=== PATIENT | female | born 1995 | race African-American/Black ===

== ENCOUNTER 2024-06-20 10:43 | Emergency (ER) | payer MEDICAID, SELFPAY ==
--- NOTE | ~2024-06-20 | CT_ITS ---
EXAMINATION: CT abdomen pelvis w con DATE: 06/20/2024 13:02 INDICATION: Constipation with diffuse abdominal pain. TECHNIQUE: Computed tomography (CT) of the abdomen and pelvis was performed with 100 mL Omnipaque-350 intravenous contrast. Automated exposure control and iterative reconstruction technique were employe d. The dose-length product was 254.06 mGy-cm. COMPARISON: None FINDINGS: Lung bases are clear. Heart size normal. No pericardial or pleural effusion. Liver, gallbladder, sple en, pancreas, bilateral adrenal glands and kidneys are normal. Normal appendix and small bowel with n o obstruction. Small amount of stool in the ascending colon. The remainder of the colon is relatively decompressed. Bladder, anteverted uterus and bilateral adnexa are unremarkable. No free intraperiton eal gas or fluid. No pathologically enlarged abdominal or pelvic lymphadenopathy. Bones are unremarka ble. IMPRESSION: 1. No acute intra-abdominal/pelvic process with only small amount of stool in the proximal colon. Reviewed, dictated and finalized at location A. TRAINER IMPRESSION: 1. No acute intra-abdominal/pelvic process with only small amount of stool in t he proximal colon.
[2024-06-20 10:46] VITALS: BP 114/64; PULSE 88; RESP 16; TEMP 36.9; O2SAT 100
--- NOTE | 2024-06-20 11:09 | ED_ITS ---
HPI - General Adult General Chief complaint: Unspecified Stated complaint: constipatio, rectal pain Time Seen by Provider: 06/20/24 10:51 History of Present Illness HPI narrative: 28-year-old female presents emergency department for rectal pain, abdominal pain constipation. Patient states she has not had a full bowel movement a week. States she has been passing soft stools and hard stools. States yesterday she passed a very hard stool then shortly after began having pain in her rectum, abdomen and nausea and vomiting. States today she began having bright red blood when she attempted to passed stool with sharp shooting pains in her rectum. She denies fever, prior abdominal surgeries, dysuria hematuria. States she took milk of magnesia last night without improvement. Related Data Allergies Allergy/AdvReac Type Severity Reaction Status Date / Time Sulfa (Sulfonamide Allergy Unknown Verified 11/05/16 12:08 Antibiotics) Review of Systems Review of Systems: All systems reviewed & are unremarkable except as noted in HPI and below Exam Narrative: GENERAL: Well-appearing, well-nourished, and in no acute distress. HEAD: Normocephalic, atraumatic. EYES: EOMI. ENT: Nares clear, no rhinorrhea or epistaxis. Mucous membranes moist. NECK: Supple. CHEST: Clear to auscultation. No respiratory distress. HEART: Regular rate and rhythm. No murmur heard. Normal peripheral pulses. ABDOMEN: Hyperactive bowel sounds. Abdomen soft with tenderness in the left lower quadrant, suprapubic region periumbilical region. No rebound or rigidity. No CVA tenderness. Rectal exam chaperoned by tech Crystal: small posterior anal fissure, tender to palpation, no active bleeding. No hematochezia or melena appreciated. No stool ball palpated. Hemoccult is positive. EXTREMITIES: Normal range of motion. No edema. SKIN: Warm, dry, no rash. NEURO: No focal deficits. Alert and oriented x3 Course Vital Signs Vital signs: Vital Signs Temperature 98.4 F 06/20/24 10:46 Pulse Rate 88 06/20/24 10:46 Respiratory Rate 16 06/20/24 10:46 Blood Pressure 114/64 06/20/24 10:46 Pulse Oximetry 100 06/20/24 10:46 Oxygen Delivery Room Air 06/20/24 10:46 Temperature 98.4 F 06/20/24 10:46 Pulse Rate 64 06/20/24 12:35 Respiratory Rate 16 06/20/24 12:35 Blood Pressure 123/70 06/20/24 12:35 Pulse Oximetry 100 06/20/24 12:35 Oxygen Delivery Room Air 06/20/24 10:46 Medical Decision Making MDM Narrative Medical decision making narrative: 28-year-old female presents emergency department for rectal pain, abdominal pain, constipation for few days. began having bright red blood in her rectum today. Vitals are stable. Exam is significant for the above. Lab work shows no leukocytosis or anemia. Chemistries are unremarkable. UA without UTI. is negative. Lipase is normal. CT abdomen pelvis shows no acute intra-abdominal or pelvic process with only small amount of stool in the proximal colon. Workup discussed with the patient. She reports improvement after IV fluids, Zofran and Toradol. Will treat anal fissure with topical nitroglycerin ointment. will provide stool softeners and MiraLax to assist with constipation a nd pain of anal fissure. Encouraged Sitz baths, increase fiber diet and close follow-up with PCP and GI, referrals provided. Discussed strict ED return precautions. She is agreeable to plan verbalized understanding. Discharged in stable condition. Vital Signs Vital Signs: Vital Signs Temperature 98.4 F 06/20/24 10:46 Pulse Rate 88 06/20/24 10:46 Respiratory Rate 16 06/20/24 10:46 Blood Pressure 114/64 06/20/24 10:46 Pulse Oximetry 100 06/20/24 10:46 Oxygen Delivery Room Air 06/20/24 10:46 Temperature 98.4 F 06/20/24 10:46 Pulse Rate 64 06/20/24 12:35 Respiratory Rate 16 06/20/24 12:35 Blood Pressure 123/70 06/20/24 12:35 Pulse Oximetry 100 06/20/24 12:35 Oxygen Delivery Room Air 06/20/24 10:46 Lab Data 06/20/24 11:19 06/20/24 11:19 Labs: Lab Results 06/20/24 06/20/24 06/20/24 Range/Units 11:19 12:44 13:11 WBC 7.9 (4.5-10.0) K/mm3 RBC 4.15 L (4.2-5.4) M/mm3 Hgb 12.6 (12.0-15.0) g/dL Hct 37.4 (37.0-47.0) % MCV 90.1 (80-100) fl MCH 30.4 (26-34) pg MCHC 33.7 (32-36) g/dl RDW 12.8 (11.5-14.5) % Plt Count 248 (150-375) k/mm3 MPV 11.0 H (7.4-10.4) fl Immature Gran % (Auto) 0.3 (0-0.5) % Neut % (Auto) 63.1 (45.5-73.1) % Lymph % (Auto) 29.4 (18.3-44.2) % [place] % (Auto) 5.7 (2.6-8.5) % Eos % (Auto) 1.1 (0-4.4) % Baso % (Auto) 0.4 (0.2-1.2) % Lymph # (Auto) 2.32 (0.9-3.2) K/mm3 [place] # (Auto) 0.5 (0.1-0.6) K/mm3 Eos # (Auto) 0.1 (0-0.3) K/mm3 Baso # (Auto) 0.0 (0.0-0.1) K/mm3 Abs Immat Gran (auto) 0.02 (0.00-0.031) K/mm3 Absolute Neuts (auto) 5.0 (1.3-6.7) K/mm3 Absolute Nucleated RBC 0.000 (0.0-0.012) K/mm3 Nucleated RBC % 0.0 (0.0-0.2) % Sodium 139 (137-145) mmol/L Potassium 3.6 (3.4-5.0) mmol/L Chloride 106 (98-107) mmol/L Carbon Dioxide 27 (22-30) mmol/L Anion Gap 6 (4-12) mmol/L BUN 11 (7-17) mg/dL Creatinine 0.90 (0.7-1.0) mg/dL Estim Creat Clear Calc 65 ml/min Estimated GFR > 60 (59 - ) Glucose 123 H (65-110) mg/dL Calcium 9.1 (8.4-10.2) mg/dL Total Bilirubin 0.7 (0.2-1.3) mg/dL AST 21 (14-36) U/L ALT 15 (6-35) U/L Alkaline Phosphatase 71 (38-126) U/L Total Protein 8.0 (6.3-8.2) g/dL Albumin 4.4 (3.5-5.1) g/dL Lipase 63 (23-300) U/L Urine Color Yellow (Yellow) Urine Appearance Clear (Clear) Urine pH 6.5 (5.0-9.0) Ur Specific [place] > 1.045 H (1.001-1.035) Urine Protein Trace (Negative) mg/dL Urine Glucose (UA) Negative (Negative) mg/dL Urine Ketones Negative (Negative) mg/dL Ur Blood (Man) Negative (Negative) Urine Nitrate Negative (Negative) Urine Bilirubin Negative (Negative) Urine Urobilinogen 0.2 (<2.0) mg/dL Leukocyte Esterase Rfl Negative (Negative) ELEONORA/UL Urine RBC 0-2 (0-2) /hpf Urine WBC 0-5 (0-3) /hpf Ur Squamous Epith Cells None seen (Few) /hpf Urine Bacteria None seen /hpf Urine Casts 0-2 POC Urine HCG, Qual Negative (Negative) Discharge Plan Discharge Clinical Impression: Anal fissure Constipation Qualifiers: Constipation type: unspecified constipation type Qualified Code(s): K59.00 - Constipation, unspecified Patient Disposition: Home, Self-Care Condition: Stable Instructions: Antibiotic Form, Constipation (DC), Anal Fissure (ED), Abdominal Pain (ED), Sitz Bath (DC) Additional Instructions: Your evaluated in the emergency department for pain to her rectum and abdominal pain. Your found have an anal fissure on exam. The rest of your workup is reassuring but does show some constipation in the CT scan. Please use the creams as directed and eat a high-fiber diet. Please do Sitz baths several times a day as discussed. He is stool softeners and MiraLax as directed. Follow-up with the GI physician and PCP. Return to the emergency department if you develop fever, worsening or changing pain, or other concerning symptoms. Prescriptions: New nitroglycerin 0.4 % (w/w) ointment 1 inch RECTAL BID 7 Days Qty: 30 0RF docusate sodium 100 mg capsule 100 mg PO BID Qty: 20 0RF ondansetron 4 mg tablet,disintegrating 4 mg PO Q8H Qty: 14 0RF polyethylene glycol 3350 [ClearLax] 17 gram/dose powder 17 g PO DAILY Qty: 119 0RF lidocaine 5 % ointment 1 applic topical DAILY PRN (Reason: pain) Qty: 30 0RF Follow-up/Referrals: Porfirio,Alanna Daley MD [Non-Staff] - Dwayne Marx MD [Physician] - 1 Day Quoc Herrmann MD [Physician] - 1 Day
[2024-06-20 11:11] VITALS: BP 120/74; PULSE 66; RESP 15; O2SAT 100
[2024-06-20] MEDS: SODIUM CHLORIDE 0.9% IV 1,000 ML 999 ML IV CONT (11:21)
[2024-06-20] MEDS: KETOROLAC 30 MG/ML VIAL (*BKC) 15 MG IV PUSH (11:23)
[2024-06-20] MEDS: ONDANSETRON INJ 4 MG/2 ML VIAL IV PUSH (11:23)
[2024-06-20 11:25] LABS: Basophils Percent Auto 0.4 % (0.2-1.2); Eosinophils Absolute Auto 0.1 K/mm3 (0-0.3); Eosinophils Percent Auto 1.1 % (0-4.4); Hematocrit 37.4 % (37.0-47.0); Hemoglobin 12.6 g/dL (12.0-15.0); Immature Granulocyte Absolute 0.02 K/mm3 (0.00-0.031); Immature Granulocyte Percent A 0.3 % (0-0.5); Lymphocytes Absolute Auto 2.32 K/mm3 (0.9-3.2); Lymphocytes Percent Auto 29.4 % (18.3-44.2); Mean Corpuscular HGB Conc 33.7 g/dl (32-36); Mean Corpuscular Hemoglobin 30.4 pg (26-34); Mean Corpuscular Volume 90.1 fl (80-100); Monocytes Absolute Auto 0.5 K/mm3 (0.1-0.6); Monocytes Percent Auto 5.7 % (2.6-8.5); Neutrophils Percent Auto 63.1 % (45.5-73.1); Platelet Count Result 248 k/mm3 (150-375); Red Blood Count 4.15 M/mm3 (4.2-5.4); Red Cell Distribution Width 12.8 % (11.5-14.5); White Blood Count 7.9 K/mm3 (4.5-10.0)
[2024-06-20 11:36] LABS: Alanine Aminotransferase 15 U/L (6-35); Albumin Level 4.4 g/dL (3.5-5.1); Alkaline Phosphatase 71 U/L (38-126); Anion Gap 6 mmol/L (4-12); Aspartate Amino Transferase 21 U/L (14-36); Bilirubin,Total 0.7 mg/dL (0.2-1.3); Blood Urea Nitrogen 11 mg/dL (7-17); Calcium 9.1 mg/dL (8.4-10.2); Carbon Dioxide 27 mmol/L (22-30); Chloride 106 mmol/L (98-107); Estimated CRCL calculation 65 ml/min; Estimated Glomerular Filt Rate > 60; Glucose 123 mg/dL (65-110); Lipase 63 U/L (23-300); Potassium 3.6 mmol/L (3.4-5.0); Sodium 139 mmol/L (137-145)
[2024-06-20 12:35] VITALS: BP 123/70; PULSE 64; RESP 16; O2SAT 100
[2024-06-20 12:46] LABS: BEDSIDEPREGUCG Negative (Negative)
[2024-06-20 13:30] LABS: Add Urine Microscopic? YES; Appearance Urine Clear (Clear); Bacteria Urine None Seen /hpf; Bilirubin Urine Negative (Negative); Blood Urine Negative (Negative); Color Urine Yellow (Yellow); Glucose Urine UA Negative (Negative); Ketones Urine Negative (Negative); Leukocyte Esterase Ur Negative LEU/UL (Negative); Nitrate Urine Negative (Negative); Non Pathogenic Casts 0-2; Protein Urine Trace mg/dL (Negative); RBC Urine 0-2 /hpf (0-2); Specific Grav Ur > 1.045 (1.001-1.035); Squamous Epithelial Cell Urine None Seen /hpf (Few); Urobilinogen Urine 0.2 mg/dL (<2.0); WBC Urine 0-5 /hpf (0-3); pH Urine 6.5 (5.0-9.0)
[2024-06-20 13:55] VITALS: BP 108/74; PULSE 71; RESP 16; TEMP 36.4; O2SAT 98
== END 2024-06-20 14:01 | disposition home or self-care (01) ==
PROVIDERS: Emergency Provider Physician Assistant
DX: K60.2 Anal fissure, unspecified (principal); K59.00 Constipation, unspecified
CPT/HCPCS: 36415; 74177; 80053; 81001; 81025; 83690; 85025; 96361; 96374; 96375; 99284; J1885; J2405; J7030; Q9967